=== PATIENT | male | born 1985 | race Caucasian/White ===

== ENCOUNTER → 2021-10-01 13:45 | Outpatient (CLI) | payer OTHER, SELFPAY ==
[2021-10-01 15:19] LABS: Hematocrit 47.2 % (40-54); Hemoglobin 15.9 g/dL (13.0-16.5); Mean Corp Hgb Conc 33.7 g/dL (32-36); Mean Corpuscular Hgb 29.4 pg (27.0-32.0); Mean Corpuscular Volume 87.2 fL (80-94); Mean Platelet Vol. 11.1 fl (6.2-12.0); Platelet Count 251 K/mm3 (150-450); RBC Distribution Width CV 11.9 % (11.6-14.6); RBC Distribution Width SD 38.1 fl (35.1-43.9); Red Blood Count 5.41 M/mm3 (4.6-6.2); White Blood Count 5.7 K/mm3 (4.4-11.0)
[2021-10-01 16:07] LABS: ALB/GLOB Ratio 1.1 RATIO (0.9-2.4); AST(SGOT) 30 U/L (15-37); Alanine Aminotransfer ALT/SGPT 85 U/L (16-61); Albumin, Serum 3.8 g/dL (3.2-5.0); Alkaline Phosphatase 84 U/L (45-117); Anion Gap 4 (5-15); BUN 12 mg/dL (7-18); Calcium,Total 8.8 mg/dL (8.5-10.1); Chloride 106 mmol/L (98-107); Cholesterol 169 mg/dL (200); EST Glomerular Filtration Rate 90 mL/min (>60); Est Glom Filt Rate - Afr Amer 109 mL/min (>60); Globulin 3.4 g/dL (2.2-4.2); Glucose 75 mg/dL (74-106); High Density Lipoprotein 49 mg/dL; Potassium 3.7 mmol/L (3.5-5.1); Protein, Total 7.2 g/dL (6.4-8.2); Sodium Level 140 mmol/L (136-145); Triglycerides 265 mg/dL; Very Low Density Lipoprotein 53 mg/dL (5-40)
== END ==
PROVIDERS: PCP Family Medicine; Referring Provider Family Medicine; Visit Provider Family Medicine
DX: Z00.00 Encounter for general adult medical examination without abnormal findings (principal); R79.89 Other specified abnormal findings of blood chemistry; E78.5 Hyperlipidemia, unspecified
CPT/HCPCS: 36415; 80053; 80061; 85027; 86769

== ENCOUNTER 2024-01-14 03:43 | Emergency (ER) | payer OTHER, SELFPAY ==
[2024-01-14 03:45] VITALS: BP 142/95; PULSE 62; RESP 17; TEMP 36.1; O2SAT 98; BMI 39.6
--- NOTE | 2024-01-14 03:54 | CT_ITS ---
EXAM: CT Abdomen And Pelvis W/O Contrast Injection HISTORY: Kidney Stone L TECHNIQUE: Routine protocol CT abdomen and pelvis. IV Contrast: None.. Oral contrast: None. RADIATION DOSAGE (If Supplied By Facility): CTDIvol = ( 23.24 ) mGy, DLP = ( 1283.39 ) mGycm Individualized dose optimization techniques were used for this CT. COMPARISON: None. LIMITATIONS: None. FINDINGS: LOWER CHEST: Included lung bases are clear. LIVER: Grossly unremarkable. GALLBLADDER AND BILIARY TREE: Grossly unremarkable. PANCREAS: Grossly unremarkable. SPLEEN: Lobulated contour of the lower margin. ADRENAL GLANDS: Grossly unremarkable. KIDNEYS AND URETERS: There is a 5 mm calculus in the distal left ureter immediately proximal to the ureterovesical junction. The left ureter is dilated with mild to moderate left hydronephrosis, and perinephric stranding. No other calculi demonstrated. No hydronephrosis on the right. PERITONEUM: No free air. No free fluid. BOWEL: No bowel obstruction. APPENDIX: Visualized and unremarkable. No evidence of acute appendicitis. VESSELS: Abdominal aorta is normal caliber. REPRODUCTIVE ORGANS: Grossly unremarkable URINARY BLADDER: Minimally distended. ABDOMINAL WALL: Unremarkable. BONES: No acute abnormalities. Degenerative changes lower lumbar spine. . CT/Abdomen/Pelvis without Cont IMPRESSION: Distal left ureteral calculus with moderate left hydroureteronephrosis. Lobulated inferior splenic margin, not well assessed. This could be related to prior trauma or other primary process. Follow-up with nonemergent CT with IV contrast may be helpful for further characterization if clinically indicated Electronically Signed: Myesha Enamorado MD at 4:50 EST ,
--- NOTE | 2024-01-14 03:54 | ED.VIS.GI ---
HPI HPI - GI History of Present Illness Chief Complaint: Flank Pain Informant: patient Abdominal Pain/Flank Pain Onset: Hours (0.5) Context: Sudden Onset (Woke him up from sleep) Timing: Continuous and Waxes and wanes Quality: Aching Location: Left Flank Current Severity: Severe Maximum Severity: Severe Worsened by: Nothing Relieved by: Nothing Nausea/Vomiting/Emesis GI Symptom: Positive for Nausea and Vomiting Associated Symptoms Associated Symptoms: Positive for - (Feels like needs to go but unable) Narrative Narrative: Patient woke up with acute onset of pain in his left flank, comes from his low back all the way around his side to his groin but not testicles. Associated with nausea and vomiting. No hematuria. Never had this before. No history of stones that he knows of or abdominal surgeries in the past. PFSH [facility] Medical History Borderline hyperlipidemia Home Medications ondansetron 4 mg disintegrating tablet 8 mg (2 x 4 mg) PO Q8H PRN PRN Nausea #20 tabs 01/14/24 [Rx Last Taken Unknown] oxycodone-acetaminophen 5 mg-325 mg tablet (Percocet) 1 tab PO Q6H PRN pain 3 days #12 tabs 01/14/24 [Rx Last Taken Unknown] Allergy/AdvReac Type Severity Reaction Status Date / Time No Known Allergies Allergy Verified 01/14/24 03:44 Social History Smoking Status: Never smoker ROS ROS ED Constitutional Constitutional ED: Denies chills or fever(s) Eyes Eyes: Denies change in vision or diplopia ENT ENT ED: Denies rhinorrhea or sore throat Cardiovascular Cardiovascular: Denies chest pain or palpitations Respiratory/Chest Respiratory/Chest: Denies cough or dyspnea Gastrointestinal Gastrointestinal: Reports abdominal pain, nausea and vomiting; Denies diarrhea Genitourinary Genitourinary ED: Reports as per HPI; Denies dysuria or hematuria Musculoskeletal Musculoskeletal: Reports back pain; Denies neck pain Integumentary Denies abscess or rash Neurologic Neurologic: Denies headache(s), paresthesias or weakness Psychiatric Psychiatric: Denies suicidal thoughts EXAM Physical Exam Const Vital Signs: 01/14/24 03:45 Temperature 97 F L Temperature Source Temporal Pulse Rate 62 Respiratory Rate 17 Blood Pressure 142/95 H Blood Pressure Mean 110 Pulse Ox 98 Oxygen Delivery Method Room Air Positive well nourished, well developed and obese General Appearance ED: well developed and NAD Nutritional Appearance: obese HEENT Reports moist mucous membranes normocephalic and atraumatic Eyes PERRL and EOMs intact bilaterally Neck full ROM and supple Resp normal respiratory effort and clear to auscultation bilaterally Cardio regular rate, regular rhythm and no murmurs GI non-tender and non-distended Auscultation: normoactive bowel sounds Palpation: soft Back/Spine General Back: CVA tenderness left and other FROM Extremity normal to inspection General Extremety ED: Negative for edema, pulses abnormal or tenderness General Extremity: Negative for edema or pulses abnormal Neuro oriented x3, CN's II-XII intact bilaterally and no sensory deficits noted Sensorium / Orientation: awake and alert Motor Exam: strength 5/5 throughout Psych thought process normal Psych Narrative: Somewhat anxious due to pain and vomiting actively Skin no rashes or lesions noted and no wounds MDM MDM MDM Narrative Medical decision making narrative: With this patient's age and health much less likely to be a ruptured AAA than a kidney stone, but both are in the differential. CT obtained. I reviewed the images and the report, which I agree with, showing a distal left ureteral stone about 5 mm. Patient feeling much better after Toradol and Zofran. Urine shows no signs of infection. Will discharge him with prescriptions for symptomatic treatment/expectant management, as well as urine strainers and instructions to return and follow-up. His urine showed mostly blood but there were some soft indicators for infection and bacteria, he does not have symptoms of infections at this was sent for culture I do not think he needs antibiotics right now. Lab Data Attestation: I reviewed the patient's lab results. Labs: Laboratory Results - last 24 hr 01/14/24 04:38 Urine Color Red Urine Clarity Turbid Urine pH 5.0 Ur Specific Julian 1.025 Urine Protein 100 H Urine Glucose (UA) Normal Urine Ketones 5 H Urine Occult Blood 250 H Urine Nitrite Negative Urine Bilirubin Negative Urine Urobilinogen Normal Ur Leukocyte Esterase 100 H Urine RBC > 100 SEEN Urine WBC 5-10 SEEN Ur Squamous Epith Cells 0 SEEN Urine Bacteria 2+ Urine Mucus 0 SEEN Radiography Diagnostic Testing: Clinical Impression(s) from Imaging Studies Abdomen/Pelvis CT 01/14/24 03:54 IMPRESSION: Distal left ureteral calculus with moderate left hydroureteronephrosis. Lobulated inferior splenic margin, not well assessed. This could be related to prior trauma or other primary process. Follow-up with nonemergent CT with IV contrast may be helpful for further characterization if clinically indicated Electronically Signed: Myesha Enamorado MD at 4:50 EST , Discharge Plan Triage Chief Complaint: Flank Pain ED Provider: Jeyson Massey Dx/Rx/DC Orders Clinical Impression: Ureterolithiasis, Renal colic on left side Instructions: ED Urine Strainer, ED Kidney Stone with Pain Prescriptions: New oxycodone-acetaminophen [Percocet] 5-325 mg tablet 1 tab PO Q6H PRN (Reason: pain) 3 Days Qty: 12 0RF ondansetron [ondansetron] 4 mg tablet,disintegrating 8 mg PO Q8H PRN PRN (Reason: Nausea) Qty: 20 0RF Primary Care Provider: Minesh Mccracken Referrals: Isaac Andino MD [Med Staff - Active Staff] - 10-14 Days if not better Disposition Disposition: Home, Self Care
[2024-01-14] MEDS: Ondansetron 4 MG/2 ML Vial IV (03:59)
[2024-01-14] MEDS: Ketorolac 30 MG/ML Syringe IV (03:59)
[2024-01-14 04:43] LABS: Mucous, Urine 0 SEEN /hpf (<or=2+); Squamous Epithelial Cells - UA 0 SEEN /hpf (0-5)
[2024-01-14 04:45] LABS: Color, Urine Red (Yellow); Glucose, Dipstick Normal (Normal); Ketone-Dipstick 5 mg/dl (Negative); Leukocyte Esterase-Dipstick 100 /ul (Negative); Nitrite-Dipstick Negative (Negative); Occult Blood-Urine 250 /ul (Negative); Protein-Dipstick 100 mg/dl (Negative); Specific Gravity, Urine 1.025 (1.002-1.030); Urine Bilirubin Dipstick Negative (Negative); Urine Clarity Turbid (Clear); Urine Urobilinogen Normal (Normal)
[2024-01-14 04:53] LABS: Bacteria 2+ /hpf (None Seen); Red Blood Cells-Urine > 100 SEEN /hpf (0-5); White Blood Cells 5-10 SEEN /hpf (0-5)
--- OUTSIDE RECORDS SUMMARY | 2024-01-14 04:54 | XMS RPT_ITS | CCD ---
Author Name Unknown Address [address] [place] [address] Organization [facility] Care Team Providers Care Orthodontic Lab Technician Name Role Phone Shreyas Mccracken MD Primary Care Provider Medications Current Medications Medication Drug Class(es) Dates Sig (Normalized) Sig (Original) doxycycline monohydrate 100 mg oral tablet (1 source) Tetracycline-clas s Drug Start: 04-11-2022 End: 04-18-2022 take 1 tablet by mouth twice daily doxycycline monohydrate 100 mg tablet Take 1 tablet by mouth twice daily for 7 days. 14 tablet 0 04/11/2022 04/18/2022 Active Problems Problem Classification Problem Date Documented Da te Episodic/Chronic Immunizations and screening for infectious disease (1 source) Patient encounter status; Translations: [Encounter for immunization] Episodic Open wounds of extremities (1 source) Laceration of finger without foreign body; Translations: [Laceration without foreign body of left index finger with damage to nail, initial encounter] Episodic Results Test Name Value Interpretation Reference Range Facil ity Vital Signs Date Time Vital Sign Value Performing Clinician Faci any 04-11-2022 10:59-0400 Body temperature 97 [degF] Kell Chamberlain APRN.[employer] Work Phone: [facility] 04-11-2022 10:59-0400 Body weight 127.37 kg Kell Chamberlain APRN.CNP Work Phone: [facility] 04-11-2022 10:59-0400 Diastolic blood pressure 78 mm[Hg] Kell Chamberlain APRN.[employer] Work Phone: [facility] 04-11-2022 10:59-0400 Heart rate 80 /min Kell Chamberlain APRN.CNP Work Phone: [facility] 04-11-2022 10:59-0400 Respiratory rate 22 /min Kell Chamberlain APRN.CNP Work Phone: [facility] 04-11-2022 10:59-0400 SaO2% (BldA) [Mass fraction] 98 % Kell Chamberlain APRN.CNP Work Phone: [facility] 04-11-2022 10:59-0400 Systolic blood pressure 122 mm[Hg] Kell Chamberlain APRN.[employer] Work Phone: [facility] Encounters Encounter Date Encounter Type Care Provider Facility Start: 04-11-2022 End: 04-11-2022 Patient encounter procedure Kell Chamberlain APRN.CNP Work Phone: [facility] Care Plan of Treatment Date Care Activity Detail Author Start: 04-11-2032 Urine microalbumin profile DTA P,TDAP,TD (2 - Td or Tdap) [facility] Start: 08-01-2022 Influenza vaccination INFLUENZA (Sea son Ended) [facility] Start: 10-02-2021 COVID-19 VACCINE (3 - Booster for Moderna series) COVID-19 VACCINE (3 - Booster for Moderna series) [facility] Start: 2019 LIPID SCREEN LIPID SCREEN [facility] Start: 2002 HEPATITIS C SCREENING HEPATITIS C SC REENING [facility] Start: 2002 HIV SCREENING HIV SCREENING [facility] Start: 1996 Adult depression scr [facility] assessment DEPRESSION SCREENING [facility] Immunizations Immunization Date Immunization Notes Care Provider Fa cility 04-11-2022 tetanus toxoid, redu jed diphtheria toxoid, and acellular pertussis vaccine, adsorbed Kell Chamberlain APRN.[employer] Work Phone: [facility] Payers Date Payer Category Payer Unknown AMISH [employer]F P AY [employer] PAY GENERIC [id number] 2022-Present [phone] [address] [place] [address] Other [id number] Social History Date Type Detail Facility Start: 08-27-2021 Tobacco smoking stat [facility] Never smoked tobacco [facility] Start: 08-27-2021 Tobacco use and exposure Smokeless tobacco non-user [facility] Start: 1984 Sex Assigned At Not on file [facility] Start: 04-01-2022 End: 04-11-2022 Exposure to SARS-CoV-2 (event) Not sure [facility] Work Phone: Progress note 04-11-2022 Note Date & Type Note Facility 04-11-2022 Note HNO ID: [id number] Author: Kell Chamberlain APRN.[employer] Service: ? Author Type: Nurse Practitioner Type: Progress Notes Filed: 04/11/2022 11:24 AM Note Text: This note was created using [employer]. Subjective Lauro Crouch is a 36 year old male. 36 year old male with no PMH presents for finger laceration. Acute onset at 1700 yesterday. States an iron bracket sliced left index finger while remodeling. He cleansed it at the time. Applied dressing. Denies numbness or tingling. Denies reduced or loss of ROM. Left hand dominant. Unsure of last tetanus Has tried pressure dressings which help, but states it will ooze at times if he removes dressing. Denies accompanying injurries. The history is provided by the patient. No languages and literature instructor was used. Laceration The incident occurred 12 to 24 hours ago. Pain location: left finger. The laceration is 1 cm in size. The laceration mechanism was a metal edge. The pain is at a severity of 3/10. The pain is mild. The pain has been constant since onset. He reports no foreign bodies present. His tetanus status is unknown. No past medical history on file. No past surgical history on file. ALLERGIES Patient has no known allergies. MEDICATIONS doxycycline monohydrate 100 mg tablet Take 1 tablet by mouth twice daily for 7 days. No family history on file. Social History Tobacco Use - Smoking status: Never Smoker - Smokeless tobacco: Never Used Substance Use Topics - Alcohol use: Not on file - Drug use: Not on file Review of Systems Constitutional: Negative for chills, diaphoresis and fever. Respiratory: Negative for apnea, cough, choking and chest tightness. Cardiovascular: Negative for chest pain, palpitations and leg swelling. Gastrointestinal: Negative for abdominal pain, diarrhea, nausea and vomiting. Musculoskeletal: Finger laceration Skin: Negative for color change, pallor, rash and wound. Allergic/Immunologic: Negative for environmental allergies, food allergies and immunocompromised state. Neurological: Negative for dizziness, facial asymmetry, light-headedness, numbness and headaches. Hematological: Negative for adenopathy. Does not bruise/bleed easily. Psychiatric/Behavioral: Negative for agitation and behavioral problems. Objective BP 122/78 Pulse 80 Temp 36.1 ?C (97 ?F) Resp 22 Wt 127.4 kg (280 lb 12.8 oz) SpO2 98% Physical Exam Vitals and nursing note reviewed. Constitutional: General: He is not in acute distress. Appearance: Normal appearance. He is not ill-appearing, toxic-appearing or diaphoretic. HENT: Head: Normocephalic and atraumatic. Right Ear: External ear normal. Left Ear: External ear normal. Nose: Nose normal. No congestion or rhinorrhea. Mouth/Throat: Mouth: Mucous membranes are moist. Pharynx: Oropharynx is clear. No oropharyngeal exudate or posterior oropharyngeal erythema. Eyes: General: Right eye: No discharge. Left eye: No discharge. Extraocular Movements: Extraocular movements intact. Conjunctiva/sclera: Conjunctivae normal. Pupils: Pupils are equal, round, and reactive to light. Cardiovascular: Rate and Rhythm: Normal rate and regular rhythm. Pulses: Normal pulses. Heart sounds: Normal heart sounds. No murmur heard. No friction rub. No gallop. Pulmonary: Effort: Pulmonary effort is normal. No respiratory distress. Breath sounds: Normal breath sounds. No stridor. No wheezing, rhonchi or rales. Chest: Chest wall: No tenderness. Abdominal: General: Abdomen is flat. There is no distension. Palpations: Abdomen is soft. There is no mass. Tenderness: There is no abdominal tenderness. There is no guarding or rebound. Hernia: No hernia is present. Musculoskeletal: General: No swelling, tenderness, deformity or signs of injury. Normal range of motion. Hands: Cervical back: Normal range of motion and neck supple. No rigidity or tenderness. Right lower leg: No edema. Left lower leg: No edema. Lymphadenopathy: Cervical: No cervical adenopathy. Skin: General: Skin is warm and dry. Capillary Refill: Capillary refill takes less than 2 seconds. Coloration: Skin is not jaundiced or pale. Findings: No bruising, lesion or rash. Neurological: General: No focal deficit present. Mental Status: He is alert and oriented to person, place, and time. Cranial Nerves: No cranial nerve deficit. Sensory: No sensory deficit. Motor: No weakness. Coordination: Coordination normal. Gait: Gait normal. Deep Tendon Reflexes: Reflexes normal. Psychiatric: Mood and Affect: Mood normal. Behavior: Behavior normal. Thought Content: Thought content normal. Assessment and Plan ASSESSMENT/PLAN: ASSESSMENT/PLAN: 1. Laceration of left index finger without foreign body with damage to nail, initial encounter - ICD9: 883.0, ICD10: S61.311A (primary diagnosis) Occurred yesterday at 1700 Given length of laceration and risk for inf (more content not included)... [facility] Instructions 04-11-2022 Patient Instructions Note Date & Type Note Facility 04-11-2022 Instructions Kell Chamberlain APRN.[facility] - 04/11/2022 11:16 AM EDT R.I.C.E. The general care of your injury includes the following: Resting, Icing, Compressing and Elevating the injured area. Remember this as RICE. REST: Limit the use of the injured body part. ICE: By applying ice to the affected area, swelling and pain can be reduced. Place some ice cubes in a re-sealable (Ziploc) bag and add some water. Put a thin washcloth between the bag and your skin. Apply the ice bag to the area for at least 20 minutes. Do this at least 4 times per day. Using the ice for longer times and more frequently is OK. NEVER APPLY ICE DIRECTLY TO THE SKIN. COMPRESS: Compression means to apply pressure around the injured area such as with a splint, cast or an akrie bandage. Compression decreases swelling and improves comfort. Compression should be tight enough to relieve swelling but not so tight as to decrease circulation. Increasing pain, numbness, tingling, or change in skin color, are all signs of decreased circulation. ELEVATE: Elevate the injured part. For example, elevate your foot by placing it on a chair while sitting, or propping it up on pillows when lying down. documented in this encounter [facility] History of Present illness Narrative 04-11-2022 Kell Chamberlain APRN.[facility] - 04/11/2022 11:06 AM EDT Note Date & Type Note Facility 04-11-2022 History of Presen t illness Narrative Images from the original note were not included. This note was created using [employer]. Subjective Lauro Crouch is a 36 year old male. 36 year old male with no PMH presents for finger laceration. Acute onset at 1700 yesterday. States an iron bracket sliced left index finger while remodeling. He cleansed it at the time. Applied dressing. Denies numbness or tingling. Denies reduced or loss of ROM. Left hand dominant. Unsure of last tetanus Has tried pressure dressings which help, but states it will ooze at times if he removes dressing. Denies accompanying injurries. The history is provided by the patient. No languages and literature instructor was used. Laceration The incident occurred 12 to 24 hours ago. Pain location: left finger. The laceration is 1 cm in size. The laceration mechanism was a metal edge. The pain is at a severity of 3/10. The pain is mild. The pain has been constant since onset. He reports no foreign bodies present. His tetanus status is unknown. No past medical history on file. No past surgical history on file. ALLERGIES Patient has no known allergies. MEDICATIONS doxycycline monohydrate 100 mg tablet Take 1 tablet by mouth twice daily for 7 days. No family history on file. Social History Tobacco Use Smoking status: Never Smoker Smokeless tobacco: Never Used Substance Use Topics Alcohol use: Not on file Drug use: Not on file Review of Systems Constitutional: Negative for chills, diaphoresis and fever. Respiratory: Negative for apnea, cough, choking and chest tightness. Cardiovascular: Negative for chest pain, palpitations and leg swelling. Gastrointestinal: Negative for abdominal pain, diarrhea, nausea and vomiting. Musculoskeletal: Finger laceration Skin: Negative for color change, pallor, rash and wound. Allergic/Immunologic: Negative for environmental allergies, food allergies and immunocompromised state. Neurological: Negative for dizziness, facial asymmetry, light-headedness, numbness and headaches. Hematological: Negative for adenopathy. Does not bruise/bleed easily. Psychiatric/Behavioral: Negative for agitation and behavioral problems. Objective BP 122/78 Pulse 80 Temp 36.1 C (97 F) Resp 22 Wt 127.4 kg (280 lb 12.8 oz) SpO2 98% Physical Exam Vitals and nursing note reviewed. Constitutional: General: He is not in acute distress. Appearance: Normal appearance. He is not ill-appearing, toxic-appearing or diaphoretic. HENT: Head: Normocephalic and atraumatic. Right Ear: External ear normal. Left Ear: External ear normal. Nose: Nose normal. No congestion or rhinorrhea. Mouth/Throat: Mouth: Mucous membranes are moist. Pharynx: Oropharynx is clear. No oropharyngeal exudate or posterior oropharyngeal erythema. Eyes: General: Right eye: No discharge. Left eye: No discharge. Extraocular Movements: Extraocular movements intact. Conjunctiva/sclera: Conjunctivae normal. Pupils: Pupils are equal, round, and reactive to light. Cardiovascular: Rate and Rhythm: Normal rate and regular rhythm. Pulses: Normal pulses. Heart sounds: Normal heart sounds. No murmur heard. No friction rub. No gallop. Pulmonary: Effort: Pulmonary effort is normal. No respiratory distress. Breath sounds: Normal breath sounds. No stridor. No wheezing, rhonchi or rales. Chest: Chest wall: No tenderness. Abdominal: General: Abdomen is flat. There is no distension. Palpations: Abdomen is soft. There is no mass. Tenderness: There is no abdominal tenderness. There is no guarding or rebound. Hernia: No hernia is present. Musculoskeletal: General: No swelling, tenderness, deformity or signs of injury. Normal range of motion. Hands: Cervical back: Normal range of motion and neck supple. No rigidity or tenderness. Right lower leg: No edema. Left lower leg: No edema. Lymphadenopathy: Cervical: No cervical adenopathy. Skin: General: Skin is warm and dry. Capillary Refill: Capillary refill takes less than 2 seconds. Coloration: Skin is not jaundiced or pale. Findings: No bruising, lesion or rash. Neurological: General: No focal deficit present. Mental Status: He is alert and oriented to person, place, and time. Cranial Nerves: No cranial nerve deficit. Sensory: No sensory deficit. Motor: No weakness. Coordination: Coordination normal. Gait: Gait normal. Deep Tendon Reflexes: Reflexes normal. Psychiatric: Mood and Affect: Mood normal. Behavior: Behavior normal. Thought Content: Thought content normal. Assessment and Plan ASSESSMENT/PLAN: ASSESSMENT/PLAN: 1. Laceration of left index finger without foreign body with damage to nail, initial encounter - ICD9: 883.0, ICD10: S61.311A (primary diagnosis) Occurred yesterday at 1700 Given length of laceration and risk for infection with delayed suturing, Will place surgicel and adherent dressing Not to remove for 24 hours RICE Finger immobilization applied. OTC analgesics RX Doxycyline prophylaxis given he is remodeling home. Patient to return here if symptoms continue or worsen Wound check next week. 2. Encounter for immunization - ICD9: V03.89, ICD10: Z23 Unsure of last Tdap Administered by nursing staff VIS provided. Kell Chamberlain APRN.[employer] documented in this encounter [facility] Progress note 08-27-2021 Note Date & Type Note Facility 08-27-2021 Note HNO ID: [id number] Author: Shine Oconnell APRN.[employer] Service: ? Author Type: Nurse Practitioner Type: Progress Notes Filed: 08/27/2021 5:47 PM Note Text: Subjective HPI HPI Lauro Crouch is a 35 year old male who presents today for CC of sore throat, congestion. This started 5 days ago. Has tried otc medication for symptoms. Symptoms are worsened by nothing. Risk factors covid positive at home. Denies cough, fever, cp/sob, diarrhea, loss taste/smell, ear pain. .Patient presents with: Covid19 Concern: exposure, sore throat x5 days No past medical history on file. No past surgical history on file. ALLERGIES Patient has no known allergies. MEDICATIONS No prescriptions on file. No family history on file. Social History Tobacco Use - Smoking status: Never Smoker - Smokeless tobacco: Never Used Substance Use Topics - Alcohol use: Not on file - Drug use: Not on file Review of Systems Constitutional: Negative for fever. HENT: Positive for congestion and sore throat. Negative for ear pain and nosebleeds. Respiratory: Negative for cough, shortness of breath and wheezing. Musculoskeletal: Negative for neck pain. Skin: Negative for itching and rash. Objective Blood pressure 108/82, pulse 82, temperature 36.7 ?C (98 ?F), resp. rate 16, weight 124.5 kg (274 lb 6.4 oz), SpO2 98 %. Physical Exam Constitutional: General: He is not in acute distress. Appearance: He is not toxic-appearing or diaphoretic. HENT: Head: Normocephalic and atraumatic. Mouth/Throat: Pharynx: No pharyngeal swelling, oropharyngeal exudate, posterior oropharyngeal erythema or uvula swelling. Cardiovascular: Rate and Rhythm: Normal rate and regular rhythm. Heart sounds: Normal heart sounds, S1 normal and S2 normal. Pulmonary: Effort: Pulmonary effort is normal. Breath sounds: Normal breath sounds. Lymphadenopathy: Cervical: No cervical adenopathy. Right cervical: No superficial cervical adenopathy. Left cervical: No superficial cervical adenopathy. Neurological: Mental Status: He is alert and oriented to person, place, and time. Gait: Gait is intact. ASSESSMENT/PLAN: 1. URI, acute - ICD9: 465.9, ICD10: J06.9 - Discussed viral etiology and rationale for treatment. - Symptomatic treatment with prn analgesia - Supportive care with fluids and rest - Follow up in 3-5 days if symptoms persist or sooner if worsening of symptoms Discussed quarantine, social distancing otc medications discussed Push fluids -If you experience chest pain/shortness of breath go to ER - 2019 CORONAVIRUS Agrees to plan Shine Oconnell APRN.[facility] Evaluation note Note Date & Type Note Facility documented in this encounter [facility] Summary Purpose Family History No Family History Records Found Advance Directives No Advanced Directives Records Found Additional Source Comments Source Comments (unrecognize d section and content) In the event this informatio n is protected by the Federal Confidentiality of Alcohol and Drug Abuse Patient Records regulations: The Federal rules restrict any use of the information to criminally investigate or prosecute any alcohol or drug abuse patient.[facility] Reason for Visit (unrecogniz ed section and content) Care Teams (unrecognized sec tion and content) (unrecognized sect ion and content) No Status Records Found INFORMATION SOURCE (unrecogn ized section and content) FOR RECORDS PERTAINING TO PATIENTS WHO ARE OR HAVE BEEN ENROLLED IN A CHEMICAL DEPENDENCY/SUBSTANCEABUSE PROGRAM, SOME INFORMATION MAY BE OMITTED. This clinical summary was aggregated from multiple sources. Caution should be exercised in using it in the provision of clinical care. This summary normalizes information from multiple sources, and as a consequence, information in this document may materially change the coding, format and clinical context of patient data. In addition, data may be omitted in some cases. CLINICAL DECISIONS SHOULD BE BASED ON THE PRIMARY CLINICAL RECORDS. [facility]. provides no warranty or guarantee of the accuracy or completeness of information in this document.
[2024-01-14] MEDS: Morphine 4 MG/ML Syringe IV (05:01)
[2024-01-14 05:04] VITALS: BP 145/79; PULSE 89; RESP 16; TEMP 36.4; O2SAT 100
[2024-01-14] MEDS: Metoclopramide 10 MG/2 ML Vial 5 MG IV (05:09)
== END 2024-01-14 05:14 | disposition home or self-care (01) ==
PROVIDERS: Emergency Provider Emergency Medicine; PCP Family Medicine; Visit Provider Emergency Medicine
DX: N13.2 Hydronephrosis with renal and ureteral calculous obstruction (principal); N23 Unspecified renal colic
CPT/HCPCS: 74176; 81001; 87077; 87086; 87088; 87186; 96374; 96375; 99283; J7030; A4216; J2405

== ENCOUNTER → 2024-02-16 | Outpatient (CLI) | payer SELFPAY ==
--- NOTE | 2024-02-16 13:50 | RAD_ITS ---
INDICATION: KIDNEY STONE EXAMINATION/TECHNIQUE: X-RAY - XR Abdomen 1 View COMPARISON: CT scan of the abdomen and pelvis of 01/14/2024 FINDINGS: BOWEL GAS PATTERN: Non-obstructive. No bowel or stomach distention. FREE AIR: Not assessed on a single supine view. ORGANOMEGALY: Not seen. CALCIFICATIONS: Small calcification on the left side of the pelvis which could correlate to the previously noted distal ureteral stone. LOWER CHEST: No acute pathology. BONES AND SOFT TISSUES: No acute pathology. RAD/Abdomen Single View IMPRESSION: Left pelvic calcification could be due to distal ureteral stone. Phlebolith is possible Electronically Signed: Loy Carrizales MD at 11:56 EDT ,
== END | disposition home or self-care (01) ==
PROVIDERS: PCP Family Medicine; Referring Provider Urology; Visit Provider Urology
DX: Z87.442 Personal history of urinary calculi (principal); N20.1 Calculus of ureter
CPT/HCPCS: 74018; 82360

== ENCOUNTER → 2024-09-15 | Outpatient (CLI) | payer OTHER, SELFPAY ==
--- NOTE | 2024-09-15 15:18 | RAD_ITS ---
EXAM: XR CHEST, 2 VIEWS CLINICAL INDICATION: BRONCHITIS TECHNIQUE: Frontal and lateral views of the chest. COMPARISON: No relevant prior studies available. FINDINGS: LUNGS AND PLEURAL SPACES: Right lower lobe infiltrate suggesting pneumonia. No pneumothorax. No effusion. HEART: Unremarkable. Cardiac silhouette not enlarged. MEDIASTINUM: Central airways and mediastinal contour are unremarkable. BONES/JOINTS: Unremarkable. No acute fracture. SOFT TISSUES: Unremarkable. RAD/Chest PA and Lateral IMPRESSION: Right lower lobe infiltrate suggesting pneumonia. Electronically Signed: Bala Correia MD at 18:13 EDT ,
== END | disposition home or self-care (01) ==
LOC: MTRAD 15:16
PROVIDERS: PCP Family Medicine
DX: J40 Bronchitis, not specified as acute or chronic (principal)
CPT/HCPCS: 71046